=== PATIENT | female | born 1985 | race Two or more races ===

== ENCOUNTER 2017-05-08 17:40 | Emergency (ER) | payer OTHER ==
[2017-05-08 17:51] VITALS: BP 113/62; PULSE 65; RESP 16; TEMP 97.5; O2SAT 95
[2017-05-08] MEDS ORDERED: IBUPROFEN 600 MG TAB PO ONE (17:58)
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
== END 2017-05-08 18:35 | disposition home or self-care (01) ==
LOC: CED 17:40
DX: S60.222A Contusion of left hand, initial encounter (principal); S63.637A Sprain of interphalangeal joint of left little finger, initial encounter; S60.417A Abrasion of left little finger, initial encounter; V89.2XXA Person injured in unspecified motor-vehicle accident, traffic, initial encounter; Y92.410 Unspecified street and highway as the place of occurrence of the external cause
CPT/HCPCS: 73130-PO